=== PATIENT | female | born 2000 | race Caucasian/White ===

== ENCOUNTER 2021-05-09 05:12 | Day surgery (SDC) | payer OTHER ==
[2021-05-05 13:36] VITALS: BMI 19.3
[2021-05-09] MEDS ORDERED: LIDOCAINE HCL 1%, 10 MG/ML (20ML VIAL) ONE (07:24)
[2021-05-09] MEDS ORDERED: BUPIVACAINE HCL/PF 0.5% (5MG/ML) 10 ML VIAL ONE (07:24)
[2021-05-09] MEDS ORDERED: DEXAMETHASONE SOD PHOSPHATE 4 MG/1 ML VIAL ONE (07:24)
[2021-05-09] MEDS ORDERED: BENZOIN/ALOE VERA/STORAX/TOLU 58 ML BOTTLE ONE (07:25)
[2021-05-09] MEDS ORDERED: MIDAZOLAM HCL 2 MG/2 ML SINGLE DOSE VIAL ONE ×3 (07:38→08:04)
[2021-05-09] MEDS ORDERED: PROPOFOL 20 ML ONE ×2 (07:38)
[2021-05-09] MEDS ORDERED: PROMETHAZINE HCL 25 MG/1 ML VIAL IVPB PRN (08:42)
[2021-05-09] MEDS ORDERED: ONDANSETRON 4 MG/2 ML VIAL IVPUSH PRN (08:42)
[2021-05-09] MEDS ORDERED: oxyCODONE HCL 5 MG TABLET PO PRN (08:42)
[2021-05-09 09:57] VITALS: TEMP 98
[2021-05-09 10:39] VITALS: BP 119/80; PULSE 81
== END 2021-05-09 10:40 | disposition home or self-care (01) ==
LOC: JASU-SURG 05:12
PROVIDERS: ATTEND Podiatrist Foot Surgery
PROC: 0QSN04Z Reposition Right Metatarsal with Internal Fixation Device, Open Approach (ICD-10-PCS; principal; 2021-05-09 07:30)
DX: M20.11 Hallux valgus (acquired), right foot (principal)
CPT/HCPCS: 73630-TC-RT-FY; 81025; 88304-TC; 88311-TC; 94760